=== PATIENT | male | born 1940 | race Caucasian/White ===

== ENCOUNTER 2017-02-08 14:38 | Inpatient (IN) | payer OTHER ==
[2017-02-08] MEDS ORDERED: ADENOSINE 6 MG/2 ML VIAL IVPUSH ONE ×2 (15:04→15:09)
[2017-02-08] MEDS ORDERED: SODIUM CHLORIDE 0.9% 500 ML INFUS.BAG IV ONE (15:05)
--- NOTE | 2017-02-08 15:07 | PDOC ---
History of Present Illness - General History Source: Patient Exam Limitations: No Limitations <Oswaldo El - Last Filed: 02/08/17 17:10> - History of Present Illness Initial Comments: 02/08/17 16:09 - General History Source: Patient Exam Limitations: No Limitations - History of Present Illness Initial Comments: 02/08/17 15:07 The patient is a 76 year old male brought via EMS, with a significant past medical history of HTN, who presents to the emergency department with tachycardia over the last few weeks. He visited his PMDs office, was given 4 baby aspirins and was sent to the ED for evaluation. He states that he has been having a rapid heart beat over the last few months, ranging from 140-150 bpm. He reports that he has been having heart irregularities over the past few months. He notes that he had a halter monitor and stress test during this time frame. He also reports dyspnea on exertion. He denies any lower extremity swelling. He notes that he recently had cold like symptoms that has since resolved. He also notes that he takes a baby aspirin daily. He states that he usually has 2-3 cups of coffee daily. The patient denies chest pain, headache and dizziness. Denies fever, chills, nausea, vomit, diarrhea and constipation. Denies dysuria, frequency, urgency and hematuria. Allergies: None Past surgical history: Social history: No alcohol, tobacco or drug use reported PMD - Dr. Dara Garcia <Oswaldo El - Last Filed: 02/08/17 15:28> <Kala Tovar - Last Filed: 02/09/17 09:19> - General Chief Complaint: Tachycardia Stated Complaint: ABNORMAL EKG Time Seen by Provider: 02/08/17 14:52 Past History <Oswaldo El - Last Filed: 02/08/17 17:10> - Past Medical History Anemia: No Asthma: No Cancer: Yes (SKIN CANCER) COPD: No - Psycho/Social/Smoking Cessation Hx Smoking History: Current some day smoker Have you smoked in the past 12 months: Yes Hx Alcohol Use: No Drug/Substance Use Hx: No Substance Use Type: None <Kala Tovar - Last Filed: 02/09/17 09:19> - Past Medical History Allergies/Adverse Reactions: Allergies Allergy/AdvReac Type Severity Reaction Status Date / Time No Known Allergies Allergy Verified 02/08/17 15:06 Home Medications: Ambulatory Orders Aspirin 81 mg PO DAILY #1 03/21/13 Cholecalciferol (Vitamin D3) [Vitamin D3 -] 400 unit PO DAILY 02/08/17 Metoprolol Tartrate 0 mg PO DAILY 02/08/17 Tamsulosin HCl [Flomax] 0.4 mg PO DAILY 02/08/17 Review of Systems - Review of Systems Able to Perform ROS?: Yes Comments:: 02/08/17 15:08 12 point review of systems is as per history of present illness and otherwise negative ROS All Other Systems: Reviewed and Negative <Oswaldo El - Last Filed: 02/08/17 17:10> *Physical Exam - Vital Signs Last Vital Signs Temp Pulse Resp BP Pulse Ox 97.7 F 139 H 18 141/90 100 02/08/17 14:38 02/08/17 14:38 02/08/17 14:38 02/08/17 14:38 02/08/17 14:38 - Physical Exam Comments: 02/08/17 15:08 GENERAL: The patient is awake, alert, and answering questions, in no respiratory distress HEAD: Normal with no signs of trauma. EYES: Normal HERNANDEZ ENT: Normal ENT Inspection NECK: Normal range of motion, supple without lymphadenopathy LUNGS: Lungs Clear, Normal Breath Sounds HEART: +Tachycardic and regular at 140 bpm, normal S1 and S2 without murmur, rub or gallop. ABDOMEN: Soft, nontender, normoactive bowel sounds. No guarding, no rebound. No masses appreciated. EXTREMITIES: +Trace pitting edema bilaterlly. Normal range of motion. No clubbing or cyanosis. No cords, erythema, or tenderness. NEUROLOGICAL: Cranial nerves II through XII grossly intact. Normal speech, normal gait. Grossly nonfocal neurologic exam PSYCH: Normal mood, normal affect. SKIN: Warm, Dry, normal turgor, no rashes or lesions noted. Last Vital Signs Temp Pulse Resp BP Pulse Ox 97.7 F 139 H 18 141/90 100 02/08/17 14:38 02/08/17 14:38 02/08/17 14:38 02/08/17 14:38 02/08/17 14:38 <Oswaldo El - Last Filed: 02/08/17 17:10> - Physical Exam Comments: 02/08/17 16:10 Temp Pulse Resp BP Pulse Ox 97.7 F 139 H 18 141/90 100 02/08/17 14:38 02/08/17 14:38 02/08/17 14:38 02/08/17 14:38 02/08/17 14:38 - Physical Exam Comments: 02/08/17 15:08 GENERAL: The patient is awake, alert, and answering questions, in no respiratory distress HEAD: Normal with no signs of trauma. EYES: Normal HERNANDEZ ENT: Normal ENT Inspection NECK: Normal range of motion, supple without lymphadenopathy LUNGS: Lungs Clear, Normal Breath Sounds HEART: +Tachycardic and regular at 140 bpm, normal S1 and S2 without murmur, rub or gallop. ABDOMEN: Soft, nontender, normoactive bowel sounds. No guarding, no rebound. No masses appreciated. EXTREMITIES: +Trace pitting edema bilaterlly. Normal range of motion. No clubbing or cyanosis. No cords, erythema, or tenderness. NEUROLOGICAL: Cranial nerves II through XII grossly intact. Normal speech, normal gait. Grossly nonfocal neurologic exam PSYCH: Normal mood, normal affect. SKIN: Warm, Dry, normal turgor, no rashes or lesions noted. Last Vital Signs Temp Pulse Resp BP Pulse Ox 97.7 F 139 H 18 141/90 100 02/08/17 14:38 02/08/17 14:38 02/08/17 14:38 02/08/17 14:38 02/08/17 14:38 <Oswaldo El - Last Filed: 02/08/17 15:28> 02/09/17 09:16 <Kala Tovar - Last Filed: 02/09/17 09:19> ED Treatment Course - LABORATORY CBC & Chemistry Diagram: 02/08/17 15:17 02/08/17 15:17 <Oswaldo El - Last Filed: 02/08/17 17:10> - LABORATORY CBC & Chemistry Diagram: 02/09/17 07:00 02/09/17 07:00 - RADIOLOGY Radiology Studies Ordered: Category Date Time Status CHEST X-RAY PORTABLE* [RAD] Stat Radiology 02/08/17 15:03 Ordered <MangoKala rao - Last Filed: 02/09/17 09:19> Medical Decision Making - Medical Decision Making 02/08/17 16:58 Dr. Garcia was consulted regarding the patient at 4:58pm [phone] Dr. Dustin Montiel was called regarding the patient at 5:03pm. Dr. Hill covering. [phone] Dr. Bassett was called regarding the patient at 5:09pm. Dr. Powers covering. [phone] <Oswaldo El - Last Filed: 02/08/17 17:10> - Medical Decision Making 02/08/17 15:05 76-year-old male who has had progressive palpitations, becoming constant, and associated with some dyspnea on exertion, but no chest pain He was found to be in a rapid tachycardia in his doctor's office, given 4 baby aspirin, and sent to the emergency department EKG Atrial flutter with 2 to one block vs SVT with retrograde P waves, with a heart rate of 140 (most likely atrial flutter with 2 to one block) Patient is alert and answering questions, and has no complaints of chest pain at this time Will start with adenosine 6 mg IV push 02/08/17 15:27 6mg of adenosine given Tachycardia was blocked down to reveal flutter waves, and then patient came back up to 140 will rate control with diltiazem 02/08/17 17:01 Patient slow down to 120 on diltiazem 5 mg drip (after 10 mg bolus) Feeling better, will increase diltiazem told 10 mg drip 02/08/17 17:13 Heart rate 115 on increase Cardizem drip Case discussed with Dr. Garcia-will admit Will give 1 mg/kg of Lovenox will consult Dr. Hill, and admit to ICU 02/08/17 17:19 Heart rate blocked down to 110 on the diltiazem drip, flutter waves seen 02/08/17 17:[address] [id number] see patient in consultation 02/08/17 17:[address] Powers-approves ICU bed Received another IV bolus of diltiazem, remains stable on Cardizem drip Laboratory Results - last 24 hr 02/08/17 02/08/17 02/08/17 15:17 15:17 15:17 WBC 5.3 RBC 5.13 Hgb 15.2 Hct 45.7 MCV 89.0 MCHC 33.3 RDW 15.7 Plt Count 209 MPV 7.4 L Neutrophils % Lymphocytes % Monocytes % Eosinophils % Basophils % INR PTT (Actin FS) Sodium 143 Potassium 4.5 Chloride 104 Carbon Dioxide 31 Anion Gap 8 BUN 19 H Creatinine 0.8 Creat Clearance w eGFR > 60 Random Glucose 97 Hemoglobin A1c % Lactic Acid Calcium 9.0 Magnesium 2.0 Total Bilirubin 0.6 AST 14 L ALT 21 Alkaline Phosphatase 74 Creatine Kinase 95 Troponin I < 0.02 B-Natriuretic Peptide 351.96 Total Protein 6.1 L Albumin 3.5 TSH 0.99 Free T4 02/08/17 02/08/17 02/09/17 15:17 15:17 00:17 WBC RBC Hgb Hct MCV MCHC RDW Plt Count MPV Neutrophils % Lymphocytes % Monocytes % Eosinophils % Basophils % INR 1.05 PTT (Actin FS) 33.6 Sodium Potassium Chloride Carbon Dioxide Anion Gap BUN Creatinine Creat Clearance w eGFR Random Glucose Hemoglobin A1c % Lactic Acid Calcium Magnesium Total Bilirubin AST ALT Alkaline Phosphatase Creatine Kinase 79 Troponin I < 0.02 B-Natriuretic Peptide Total Protein Albumin TSH Free T4 02/09/17 02/09/17 02/09/17 07:00 07:00 07:00 WBC 5.2 RBC 4.92 Hgb 14.6 Hct 44.3 MCV 90.2 MCHC 33.0 RDW 15.7 Plt Count 199 MPV 7.6 Neutrophils % 71.4 Lymphocytes % 16.0 Monocytes % 10.9 H Eosinophils % 1.3 Basophils % 0.4 INR PTT (Actin FS) Sodium 142 Potassium 4.0 Chloride 109 H Carbon Dioxide 24 D Anion Gap 9 BUN 17 Creatinine 0.8 Creat Clearance w eGFR Random Glucose 100 Hemoglobin A1c % Lactic Acid Calcium 8.5 Magnesium Total Bilirubin AST ALT Alkaline Phosphatase Creatine Kinase 74 Troponin I < 0.02 B-Natriuretic Peptide Total Protein Albumin TSH 1.66 D Free T4 1.08 02/09/17 02/09/17 07:00 07:00 WBC RBC Hgb Hct MCV MCHC RDW Plt Count MPV Neutrophils % Lymphocytes % Monocytes % Eosinophils % Basophils % INR PTT (Actin FS) Sodium Potassium Chloride Carbon Dioxide Anion Gap BUN Creatinine Creat Clearance w eGFR Random Glucose Hemoglobin A1c % 5.9 Lactic Acid 1.203 Calcium Magnesium Total Bilirubin AST ALT Alkaline Phosphatase Creatine Kinase Troponin I B-Natriuretic Peptide Total Protein Albumin TSH Free T4 <Kala Tovar - Last Filed: 02/09/17 09:19> *DC/Admit/Observation/Transfer - Attestations Scribe Attestion: 02/08/17 15:08 Documentation prepared by Oswaldo El, acting as pediatric medical assistant for Kala Tovar MD <Oswaldo El - Last Filed: 02/08/17 17:10> - Discharge Dispostion Admit: Yes <Kala Tovar - Last Filed: 02/09/17 09:19> Diagnosis at time of Disposition: Atrial flutter with rapid ventricular response, Tachycardia
[2017-02-08 15:08] VITALS: BMI 29.9
[2017-02-08] MEDS ORDERED: dilTIAZem HCL 50 MG/10 ML - 10 ML VIAL IVPUSH ONE ×3 (15:27→19:31)
[2017-02-08] MEDS ORDERED: dilTIAZem HCL 50 MG/10 ML - 10 ML VIAL ONE ×2 (15:30→19:34)
[2017-02-08 15:31] LABS: MCH 29.6 pg (25.7-33.7); MCHC 33.3 g/dl (32.0-35.9); MEAN PLT VOLUME 7.4 fl (7.5-11.1); PLATELET COUNT 209 K/MM3 (134-434); RDW 15.7 % (11.9-15.9); WHITE BLOOD COUNT 5.3 K/mm3 (4.0-10.0)
[2017-02-08] MEDS: DILTIAZEM INJECTION 125 MG in DEXTROSE 5%-WATER - 100 ML IVPB SCH (15:42)
[2017-02-08 15:54] LABS: INR 1.05 (0.82-1.09); PROTHROMBIN TIME (PATIENT) 11.6 SEC (9.98-11.88)
[2017-02-08 16:13] LABS: ALBUMIN 3.5 g/dl (3.4-5.0); ANION GAP 8 (8-16); CO2 31 mmol/L (21-32); CREATININE 0.8 mg/dL (0.7-1.3); GLUCOSE,RANDOM 97 mg/dL (74-106); SGOT/AST 14 U/L (15-37)
[2017-02-08 16:22] LABS: ALK PHOS 74 U/L (45-117); BILIRUBIN,TOTAL 0.6 mg/dL (0.2-1.0); SGPT/ALT 21 U/L (12-78); TOT PROT 6.1 g/dl (6.4-8.2)
[2017-02-08] MEDS ORDERED: ENOXAPARIN NA (PORCINE) 80 MG/0.8 ML DISP.SYRIN SQ SCH (17:15)
--- NOTE | 2017-02-08 17:24 | EKG ---
Test Reason : Blood Pressure : / mmHG Vent. Rate : 139 BPM Atrial Rate : 139 BPM P-R Int : 000 ms QRS Dur : 160 ms QT Int : 356 ms P-R-T Axes : 000 011 -54 degrees QTc Int : 541 ms ATRIAL FLUTTER WITH 2 TO 1 BLOCK AND RAPID VENTRICULAR RESPONSE NON-SPECIFIC INTRA-VENTRICULAR CONDUCTION BLOCK ABNORMAL ECG NO PREVIOUS ECGS AVAILABLE Confirmed by SHANITA GOLDBERG MD ([id number]) on 02/08/2017 5:24:28 PM Referred By: Confirmed By:SHANITA GOLDBERG MD
[2017-02-08] MEDS ORDERED: ENOXAPARIN NA (PORCINE) 80 MG/0.8 ML DISP.SYRIN SQ ONE (19:25)
[2017-02-08 21:05] LABS: TROPONIN I < 0.02 ng/ml (0.00-0.05)
[2017-02-08] MEDS ORDERED: ACETAMINOPHEN 650 MG SUPP.RECT PR PRN (21:07)
[2017-02-08] MEDS ORDERED: CHLORHEXIDINE GLUCONATE 4% CLEANSER FOR DECOLONIZATION TP SCH (22:00)
[2017-02-08] MEDS ORDERED: MUPIROCIN 2% TOPICAL OINTMENT FOR DECOLONIZATION NS SCH (22:00)
[2017-02-08] MEDS: METOPROLOL TARTRATE 50 MG TABLET (FP) PO SCH (22:48)
[2017-02-09 00:53] LABS: TROPONIN I < 0.02 ng/ml (0.00-0.05)
[2017-02-09] MEDS ORDERED: dilTIAZem HCL 125 MG/25 ML - 25 ML VIAL ONE ×2 (02:01→10:37)
[2017-02-09] MEDS ORDERED: dilTIAZem HCL 50 MG/10 ML - 10 ML VIAL ONE ×2 (02:01→10:37)
[2017-02-09] MEDS ORDERED: METOPROLOL TARTRATE 50 MG TABLET (FP) ONE (02:38)
[2017-02-09 07:33] LABS: BASOPHIL 0.4 % (0-2.0); EOSINOPHIL 1.3 % (0-4.5); MCH 29.8 pg (25.7-33.7); MEAN CELL VOLUME 90.2 fl (80-96); MEAN PLT VOLUME 7.6 fl (7.5-11.1); NEUTROPHILS 71.4 % (42.8-82.8); PLATELET COUNT 199 K/MM3 (134-434); RDW 15.7 % (11.9-15.9); WHITE BLOOD COUNT 5.2 K/mm3 (4.0-10.0)
[2017-02-09 08:15] LABS: CALCIUM 8.5 mg/dL (8.5-10.1); CREATININE 0.8 mg/dL (0.7-1.3)
[2017-02-09 08:16] LABS: FREE T4 1.08 ng/dl (0.76-1.16); TROPONIN I < 0.02 ng/ml (0.00-0.05)
[2017-02-09 08:23] LABS: THYROID STIMULATING HORMONE 1.66 uIU/ml (0.358-3.74)
[2017-02-09] MEDS: ASPIRIN 81 MG CHEWABLE TABLETS PO SCH (09:20)
[2017-02-09] MEDS: TAMSULOSIN HCL 0.4 MG CAP.ER.24H (FP) PO SCH (09:20)
[2017-02-09] MEDS: METOPROLOL TARTRATE 50 MG TABLET (FP) PO SCH ×2 (09:20→22:30)
[2017-02-09] MEDS: ENOXAPARIN NA (PORCINE) 80 MG/0.8 ML DISP.SYRIN SQ SCH ×2 (09:20→17:40)
[2017-02-09] MEDS ORDERED: METOPROLOL TARTRATE 50 MG TABLET (FP) PO ONE (09:35)
--- NOTE | 2017-02-09 10:19 | HP ---
Admitting History and Physical - Admission History of Present Illness: 76 year old male brought via EMS, with a significant past medical history of HTN, who presents to the emergency department with tachycardia over the last few weeks. He was seen in office office, was given 4 baby aspirins and was sent to the ED for evaluation. He states that he has been having a rapid heart beat over the last few weeks, ranging from 140-150 bpm. . He notes that he had a halter monitor and stress test during this time frame. He also reports dyspnea on exertion. He denies any lower extremity swelling. He notes that he recently had cold like symptoms that has since resolved. He also notes that he takes a baby aspirin daily. He states that he usually has 2-3 cups of coffee daily. pt c/o chest pain with minimal exertion c/o fatigue - Past Medical History Cardiovascular: Yes: HTN, Hyperlipdemia, Other (pvc) Pulmonary: No: COPD Gastrointestinal: No: Cancer, Crohn's Disease, Diverticulitis Renal/: No: Renal Failure, Renal Inusuff - Smoking History Smoking history: Current some day smoker Have you smoked in the past 12 months: Yes - Alcohol/Substance Use Hx Alcohol Use: No Home Medications - Allergies Allergies/Adverse Reactions: Allergies Allergy/AdvReac Type Severity Reaction Status Date / Time No Known Allergies Allergy Verified 02/08/17 15:06 - Home Medications Home Medications: Ambulatory Orders Aspirin 81 mg PO DAILY #1 03/21/13 Cholecalciferol (Vitamin D3) [Vitamin D3 -] 400 unit PO DAILY 02/08/17 Metoprolol Tartrate 0 mg PO DAILY 02/08/17 Tamsulosin HCl [Flomax] 0.4 mg PO DAILY 02/08/17 Review of Systems - Review of Systems Cardiovascular: reports: Chest Pain, Palpitations, Shortness of Breath Respiratory: reports: SOB on Exertion. denies: Cough Gastrointestinal: denies: Abdominal Pain Genitourinary: reports: No Symptoms Musculoskeletal: reports: No Symptoms Neurological: reports: Weakness. denies: Change in LOC, Change in Speech, Confusion Physical Examination Vital Signs: Vital Signs Temperature 97.7 F 02/08/17 14:38 Pulse Rate 116 H 02/09/17 09:15 Respiratory Rate 22 02/09/17 09:15 Blood Pressure 116/86 02/09/17 09:15 O2 Sat by Pulse Oximetry (%) 98 02/09/17 09:15 Neck: Yes: Supple Cardiovascular: Yes: Tachycardia, Pulse Irregular, S1, S2 Respiratory: Yes: Regular, CTA Bilaterally Gastrointestinal: Yes: Normal Bowel Sounds, Soft Edema: No Neurological: Yes: Alert, Oriented Labs: CBC, BMP 02/09/17 07:00 02/09/17 07:00 Imaging - Results Other: Report Reviewed, Image Reviewed Problem List - Problems (1) Atrial flutter with rapid ventricular response Assessment/Plan: CARDIZEM DRIP AC--LOVENOX CARDOP ECHO Code(s): I48.92 - UNSPECIFIED ATRIAL FLUTTER (2) HTN (hypertension) Assessment/Plan: CONTROLLED Code(s): I10 - ESSENTIAL (PRIMARY) HYPERTENSION (3) Chest pain Assessment/Plan: CE NEGATIVE CONSIDER NUCLEAR VS CATH--RECENT STRESS ECHO NL Code(s): R07.9 - CHEST PAIN, UNSPECIFIED
--- NOTE | 2017-02-09 13:27 | EKG ---
Test Reason : Blood Pressure : / mmHG Vent. Rate : 123 BPM Atrial Rate : 278 BPM P-R Int : 000 ms QRS Dur : 092 ms QT Int : 368 ms P-R-T Axes : 254 -19 -39 degrees QTc Int : 526 ms POOR DATA QUALITY, INTERPRETATION MAY BE ADVERSELY AFFECTED ATRIAL FLUTTER WITH VARIABLE A-V BLOCK ABNORMAL ECG WHEN COMPARED WITH ECG OF 08-FEB-2017 14:49, ATRIAL FLUTTER HAS REPLACED SINUS RHYTHM QRS DURATION HAS DECREASED ST NOW DEPRESSED IN INFERIOR LEADS NONSPECIFIC T WAVE ABNORMALITY NO LONGER EVIDENT IN LATERAL LEADS Confirmed by MICHELLE MARTINEZ MD ([id number]) on 02/09/2017 1:27:26 PM Referred By: Confirmed By:MICHELLE MARTINEZ MD
--- NOTE | 2017-02-09 13:30 | EKG ---
Test Reason : Blood Pressure : / mmHG Vent. Rate : 083 BPM Atrial Rate : 267 BPM P-R Int : 000 ms QRS Dur : 094 ms QT Int : 438 ms P-R-T Axes : 269 -31 -28 degrees QTc Int : 514 ms ATRIAL FLUTTER WITH VARIABLE A-V BLOCK LEFT AXIS DEVIATION JUNCTIONAL ST DEPRESSION, PROBABLY ABNORMAL PROLONGED QT ABNORMAL ECG WHEN COMPARED WITH ECG OF 08-FEB-2017 18:48, NO SIGNIFICANT CHANGE WAS FOUND Confirmed by MICHELLE MARTINEZ MD ([id number]) on 02/09/2017 1:29:31 PM Referred By: Pieter AL Confirmed By:MICHELLE MARTINEZ MD
--- NOTE | 2017-02-09 13:54 | PN ---
Progress Note, Physician Chief Complaint: Palpitations, SOB over past several weeks - Current Medication List Current Medications: Active Medications Acetaminophen (Tylenol Suppository -) 650 mg MA Q4H PRN PRN Reason: FEVER OR PAIN Aspirin (Asa -) 81 mg PO DAILY [facility] Last Admin: 02/09/17 09:20 Dose: 81 mg Chlorhexidine Gluconate (Hibiclens For Decolonization -) 1 applic TP HS [facility] Enoxaparin Sodium (Lovenox -) 80 mg SQ ONCE [facility] Last Admin: 02/08/17 19:29 Dose: 80 mg Enoxaparin Sodium (Lovenox -) 80 mg SQ BID@0600,1800 [facility] Last Admin: 02/09/17 09:20 Dose: 80 mg Diltiazem HCl 125 mg/ Dextrose 125 mls @ 5 mls/hr IVPB TITR MONALISA; 5 MG/HR PRN Reason: Protocol Last Titration: 02/08/17 19:47 Dose: 15 mg/hr Metoprolol Tartrate (Lopressor -) 50 mg PO BID [facility] Last Admin: 02/09/17 09:20 Dose: 50 mg Mupirocin (Bactroban Ointment (For Decolonization) -) 1 applic NS BID [facility] Stop: 02/13/17 21:59 Tamsulosin HCl (Flomax -) 0.4 mg PO DAILY [facility] Last Admin: 02/09/17 09:20 Dose: 0.4 mg - Objective Vital Signs: Vital Signs Temperature 97.7 F 02/08/17 14:38 Pulse Rate 116 H 02/09/17 09:15 Respiratory Rate 22 02/09/17 09:15 Blood Pressure 116/86 02/09/17 09:15 O2 Sat by Pulse Oximetry (%) 98 02/09/17 09:15 Labs: CBC, BMP 02/09/17 07:00 02/09/17 07:00 INR, PTT INR 1.05 (0.82-1.09) 02/08/17 15:17
--- NOTE | 2017-02-09 13:58 | CON.CARD ---
Consult Consult Specialty:: Cardiology Referred by:: Dr. Tovar Reason for Consultation:: Atrial flutter - History of Present Illness Chief Complaint: Palpitations, dyspnea over past several weeks History of Present Illness: 76 yo male with HTN, who presented to ED yesterday from his PMD's office for new onset rapid atrial flutter. Patient reported exertional dyspnea/fatigue and palpitations over the past several weeks and was found to be in new onset rapid atrial flutter at his PMD's office. He was started on diltiazem gtt and Lovenox in the ED. Currently better rate controlled, but not optimal. Currently without chest pain or dyspnea. Denies melena, hematochezia, or hematemesis. Patient was last seen by Dr. Girish Riley in 10/2016. - History Source History Provided By: Patient, Medical Record Limitations to Obtaining History: No Limitations - Past Medical History Cardio/Vascular: Yes: HTN, Hyperlipdemia, Other (H/O PVCs, atrial flutter) Pulmonary: No: COPD Gastrointestinal: No: Cancer, Crohn's Disease, Diverticulitis Renal/: No: Renal Failure, Renal Inusuff Heme/Onc: Yes: Cancer (History of skin cancer) - Past Surgical History Past Surgical History: Yes: Cataract Removal - Alcohol/Substance Use Hx Alcohol Use: No History of Substance Use: reports: None - Smoking History Smoking history: Current some day smoker Have you smoked in the past 12 months: Yes Home Medications - Allergies Allergies/Adverse Reactions: Allergies Allergy/AdvReac Type Severity Reaction Status Date / Time No Known Allergies Allergy Verified 02/08/17 15:06 - Home Medications Home Medications: Ambulatory Orders Aspirin 81 mg PO DAILY #1 03/21/13 Cholecalciferol (Vitamin D3) [Vitamin D3 -] 400 unit PO DAILY 02/08/17 Metoprolol Tartrate 0 mg PO DAILY 02/08/17 Tamsulosin HCl [Flomax] 0.4 mg PO DAILY 02/08/17 Family Disease History - Family Disease History Family Disease History: Heart Disease: Brother ( from heart failure at age 74) Review of Systems - Review of Systems Eyes: reports: No Symptoms HENT: reports: No Symptoms Neck: reports: No Symptoms Cardiovascular: reports: Palpitations, Shortness of Breath. denies: Chest Pain , Edema Respiratory: reports: SOB on Exertion Gastrointestinal: reports: No Symptoms Genitourinary: reports: No Symptoms Musculoskeletal: reports: No Symptoms Neurological: reports: No Symptoms Endocrine: reports: No Symptoms Hematology/Lymphatic: reports: No Symptoms Psychiatric: reports: No Symptoms - Risk Factors Known Risk Factors: Yes: Hypertension Vital Signs: Vital Signs Temperature 97.7 F 02/08/17 14:38 Pulse Rate 116 H 02/09/17 09:15 Respiratory Rate 22 02/09/17 09:15 Blood Pressure 116/86 02/09/17 09:15 O2 Sat by Pulse Oximetry (%) 98 02/09/17 09:15 Constitutional: Yes: No Distress, Obese Eyes: Yes: Conjunctiva Clear, EOM Intact HENT: Yes: Atraumatic, Normocephalic Respiratory: Yes: CTA Bilaterally Gastrointestinal: Yes: Normal Bowel Sounds, Soft. No: Tenderness Cardiovascular: Yes: Tachycardia, Pulse Irregular JVD: No Carotid Bruit: No Heart Sounds: Yes: S1, S2 Murmur: No: Systolic Murmur Edema: No Peripheral Pulses WNL: Yes Neurological: Yes: Alert, Oriented, Cran Nerves II-XII Intact ...Motor Strength: WNL Psychiatric: Yes: WNL - Other Data Labs, Other Data: CBC, BMP 02/09/17 07:00 02/09/17 07:00 INR, PTT INR 1.05 (0.82-1.09) 02/08/17 15:17 Troponin, BNP 02/09/17 02/09/17 00:17 07:00 Troponin I < 0.02 < 0.02 Troponin, BNP 02/09/17 02/09/17 00:17 07:00 Troponin I < 0.02 < 0.02 02/09/17 ECG: Atrial flutter with variable AV block Imaging - Results Chest X-ray: Report Reviewed (02/08/17 CXR: No acute pathology.), Image Reviewed Assessment/Plan 76 yo male with HTN, who presented with new onset rapid atrial flutter. Currently better controlled on diltiazem gtt and oral metoprolol. Currently on Lovenox for thromboembolic prophylaxis. TSH, free T4 normal Serial trops negative Reportedly negative stress echocardiogram in 10/2015. RECS: Patient may be admitted to telemetry floor as ICU bed is not needed at this time since patient is better rate controlled and currently stable. Will transition from Lovenox to oral anticoagulant (Eliquis) if no significant valvular disease per echocardiogram today. Will increase metoprolol tartrate to 100 mg po bid for rate control and wean diltiazem gtt as tolerated. HR < 120 acceptable for now. Patient is scheduled for EMMA guided cardioversion tomorrow at 11:30 AM (by me) if patient remains in atrial flutter by tomorrow. Please keep NPO after midnight for EMMA/cardioversion tomorrow. Please call with questions.
[2017-02-09] MEDS: DILTIAZEM INJECTION 125 MG in DEXTROSE 5%-WATER - 100 ML IVPB SCH (15:52)
--- NOTE | 2017-02-09 16:43 | PN ---
Progress Note (short form) - Note Progress Note: PULMONARY CONSULTATION DICTATED 02/09/17 IMP RAPID FLUTTER COPD STABLE CHEST PAIN HTN HLD PLAN RATE CONTROL PER CARDIOLOGY INHALED BRONCHODILATORS PRN RATE CONTROL PER CARDIOLOGY DR VERONICA Problem List - Problems (1) Atrial flutter with rapid ventricular response Code(s): I48.92 - UNSPECIFIED ATRIAL FLUTTER (2) Chest pain Code(s): R07.9 - CHEST PAIN, UNSPECIFIED (3) HTN (hypertension) Code(s): I10 - ESSENTIAL (PRIMARY) HYPERTENSION (4) Tachycardia Code(s): R00.0 - TACHYCARDIA, UNSPECIFIED
--- NOTE | 2017-02-09 23:18 | CONS ---
DATE OF CONSULTATION: 02/09/2017 PULMONARY CONSULTATION REFERRING PHYSICIAN: Dara Garcia M.D. HISTORY OF PRESENT ILLNESS: The patient is a 76-year-old white male with past medical history of hypertension, questionable COPD, hyperlipidemia, history of PVCs, atrial flutter, hyperlipidemia, admitted to [facility] with complaint of a few week history of palpitations. Patient went to his PMD's office today, was noted to be in rapid atrial flutter. He was sent to the emergency room for further therapy. Patient denied any complaint of chest pain, nausea, vomiting, diaphoreses. Denied any fevers or chills. In the ER, he was started on diltiazem drip and given Lovenox and transferred to telemetry unit for other monitoring. The patient has an occasional history of smoking. He is retired, his previous work as an accounts payable accountant. There is no history of recent travel, there is no history of DVT or PE in the past. He does complain of dyspnea on exertion while walking inclines, not on level ground. He has an occasional cough which is nonproductive. He denies any weight loss or night sweats. Of note is he underwent an echo which revealed evidence of moderate to severe tricuspid regurgitation with right ventricular systolic pressure . Patient states he is unsure whether or not he still has occasional daytime tiredness. He denies any history of witnessed apneic episodes. PAST MEDICAL HISTORY: Again includes history of irregular heartbeat, atrial flutter, hypertension, hyperlipidemia, questionable COPD, hyperlipidemia. REVIEW OF SYSTEMS: No orthopnea. No PND. No chest pain. No positive palpitations. No nausea. No vomiting. No diaphoreses. MEDICATION: Prior to admission include aspirin, vitamin D3, metoprolol, and Flomax. CURRENT MEDICATIONS: Include Flomax, Bactroban, Lovenox, Lopressor, Cardizem, and aspirin. PHYSICAL EXAMINATION: General: The patient is a well-developed, well-nourished male, awake, alert, in no acute distress. Vital signs: He is afebrile. Blood pressure 109/77, heart rate 94 and irregular, O2 saturation 95% on 2 L. HEENT: Head is normocephalic, atraumatic. Neck: Supple. Heart: Irregularly irregular. Normal S1, S2. Chest: Clear. Abdomen: Soft. Bowel sounds positive. Extremities: No cyanosis, edema. LABORATORY: WBC 5.2, hemoglobin 14.6, hematocrit 44.3, platelet count 199,000. BUN 17, creatinine 0.8. Chest x-ray reveals no infiltrates and no effusions. IMPRESSION: 1. Rapid atrial fibrillation and flutter. 2. Chronic obstructive pulmonary disease currently stable. 3. Hypertension. 4. Hyperlipidemia. PLAN: Continue rate control as per cardiology. Inhaled bronchodilators p.r.n. Nasal O2. PFTs as outpatient. FAITH VERONICA M.D. NÉSTOR/[id number] MTDD
[2017-02-10] MEDS: DILTIAZEM INJECTION 125 MG in DEXTROSE 5%-WATER - 100 ML IVPB SCH (01:58)
--- NOTE | 2017-02-10 08:20 | PN ---
Progress Note, Physician History of Present Illness: feels better no cp or sob - Current Medication List Current Medications: Active Medications Acetaminophen (Tylenol Suppository -) 650 mg IA Q4H PRN PRN Reason: FEVER OR PAIN Apixaban (Eliquis -) 5 mg PO BID [facility] Aspirin (Asa -) 81 mg PO DAILY [facility] Last Admin: 02/09/17 09:20 Dose: 81 mg Chlorhexidine Gluconate (Hibiclens For Decolonization -) 1 applic TP HS [facility] Diltiazem HCl 125 mg/ Dextrose 125 mls @ 5 mls/hr IVPB TITR MONALISA; 5 MG/HR PRN Reason: Protocol Last Admin: 02/10/17 01:58 Dose: 5 mls/hr Metoprolol Tartrate (Lopressor -) 100 mg PO BID [facility] Last Admin: 02/09/17 22:30 Dose: 100 mg Mupirocin (Bactroban Ointment (For Decolonization) -) 1 applic NS BID [facility] Stop: 02/13/17 21:59 Tamsulosin HCl (Flomax -) 0.4 mg PO DAILY [facility] Last Admin: 02/09/17 09:20 Dose: 0.4 mg - Objective Vital Signs: Vital Signs Temperature 98.2 F 02/10/17 06:00 Pulse Rate 81 02/10/17 06:00 Respiratory Rate 20 02/10/17 06:00 Blood Pressure 127/85 02/10/17 06:00 O2 Sat by Pulse Oximetry (%) 95 02/10/17 06:00 Cardiovascular: Yes: Pulse Irregular, S1, S2 Respiratory: Yes: Regular, CTA Bilaterally Gastrointestinal: Yes: Normal Bowel Sounds, Soft Labs: CBC, BMP 02/09/17 07:00 02/09/17 07:00 INR, PTT INR 1.05 (0.82-1.09) 02/08/17 15:17 Problem List - Problems (1) Atrial flutter with rapid ventricular response Assessment/Plan: RATE CONTROLLED AC--LOVENOX CARDIO NOTED --FOR CARDIOVERSION ECHO Code(s): I48.92 - UNSPECIFIED ATRIAL FLUTTER (2) HTN (hypertension) Assessment/Plan: CONTROLLED Code(s): I10 - ESSENTIAL (PRIMARY) HYPERTENSION (3) Chest pain Assessment/Plan: RESOLVED CE NEGATIVE CONSIDER NUCLEAR VS CATH--RECENT STRESS ECHO NL Code(s): R07.9 - CHEST PAIN, UNSPECIFIED
[2017-02-10] MEDS: METOPROLOL TARTRATE 50 MG TABLET (FP) PO SCH ×2 (09:38→21:44)
[2017-02-10] MEDS: APIXABAN 5 MG TABLET PO SCH ×2 (09:38→21:44)
[2017-02-10] MEDS: TAMSULOSIN HCL 0.4 MG CAP.ER.24H (FP) PO SCH (09:38)
[2017-02-10] MEDS: ASPIRIN 81 MG CHEWABLE TABLETS PO SCH (09:38)
--- NOTE | 2017-02-10 10:00 | PN ---
Progress Note, Physician History of Present Illness: Currently doing well. Rate controlled atrial flutter this morning. No complaints currently. - Current Medication List Current Medications: Active Medications Acetaminophen (Tylenol Suppository -) 650 mg [place] Q4H PRN PRN Reason: FEVER OR PAIN Apixaban (Eliquis -) 5 mg PO BID [facility] Last Admin: 02/10/17 09:38 Dose: 5 mg Aspirin (Asa -) 81 mg PO DAILY [facility] Last Admin: 02/10/17 09:38 Dose: 81 mg Chlorhexidine Gluconate (Hibiclens For Decolonization -) 1 applic TP HS [facility] Diltiazem HCl 125 mg/ Dextrose 125 mls @ 5 mls/hr IVPB TITR MONALISA; 5 MG/HR PRN Reason: Protocol Last Admin: 02/10/17 01:58 Dose: 5 mls/hr Metoprolol Tartrate (Lopressor -) 100 mg PO BID [facility] Last Admin: 02/10/17 09:38 Dose: 100 mg Mupirocin (Bactroban Ointment (For Decolonization) -) 1 applic NS BID [facility] Stop: 02/13/17 21:59 Tamsulosin HCl (Flomax -) 0.4 mg PO DAILY [facility] Last Admin: 02/10/17 09:38 Dose: 0.4 mg - Objective Vital Signs: Vital Signs Temperature 96.8 F L 02/10/17 08:00 Pulse Rate 86 02/10/17 08:00 Respiratory Rate 18 02/10/17 08:44 Blood Pressure 127/81 02/10/17 08:00 O2 Sat by Pulse Oximetry (%) 98 02/10/17 08:44 Constitutional: Yes: Well Nourished, No Distress Eyes: Yes: Conjunctiva Clear, EOM Intact HENT: Yes: Atraumatic, Normocephalic Cardiovascular: Yes: Pulse Irregular. No: JVD, Murmur Respiratory: Yes: CTA Bilaterally Gastrointestinal: Yes: Normal Bowel Sounds, Soft. No: Tenderness Edema: No Neurological: Yes: Alert, Oriented, Cran Nerves II-XII Intact Labs: CBC, BMP 02/09/17 07:00 02/09/17 07:00 INR, PTT INR 1.05 (0.82-1.09) 02/08/17 15:17 Assessment/Plan 76 yo male with HTN, who presented with new onset rapid atrial flutter. Currently rate controlled on diltiazem gtt and oral metoprolol. Currently on Lovenox for thromboembolic prophylaxis. TSH, free T4 normal Serial trops negative Reportedly negative stress echocardiogram in 10/2015. 02/09/17 Echocardiogram demonstrated normal LV size and systolic function, mod LAE +RUDDY, mild to mod MR, mod AR, mod to severe TR, normal RVSP, mild OH, mild aortic root dilatation RECS: Will discontinue diltiazem gtt. Continue metoprolol tartrate 100 mg po bid Will continue Eliquis 5 mg po bid. Patient scheduled for EMMA/cardioversion at 11:30 AM today. If successful cardioversion, patient will need to remain on Eliquis for 1 month post cardioversion. If no recurrence of aflutter/afib at that time, may discontinue Eliquis. Please call with questions.
[2017-02-10] MEDS ORDERED: PROPOFOL 20 ML ONE ×4 (10:50→11:30)
[2017-02-10] MEDS ORDERED: LIDOCAINE VISCOUS 2% ORAL/TOP 100 ML BOTTLE MM ONE (11:40)
--- NOTE | 2017-02-10 11:58 | PROC ---
Cardioversion Indication: Atrial flutter Risks and Benefits Explained: Yes Consent on Chart: Yes EMMA done prior to Cardioversion: Yes EMMA findings: No TESS thrombus Patient anticoagulated: Yes - Procedure Anesthesiologist present: Yes Medication given: Propofol was given intravenously by anesthesiology Joules delivered: Single shock 100 J (biphasic) w/ pads placed in anterior- posterior position Rhythm post cardioversion: Sinus bradycardia, HR 50s Transesophageal Echocardiogram - Pre-Procedure Indications: Evaluate for embolus (Pre-cardioversion EMMA) Risks and Benefits Explained: Yes Consent on Chart: Yes - Procedure Procedure Done: in Endoscopy Suite Medication given: Propofol was given intravenously by anesthesiology Findings: No TESS thrombus. Full details of EMMA to follow in separate report.
--- NOTE | 2017-02-10 16:07 | PN ---
Progress Note (short form) - Note Progress Note: S/P DCCV today by cardiology. No CP or SOB. Intake & Output 02/07/17 02/08/17 02/09/17 02/10/17 23:59 23:59 23:59 23:59 Intake Total 420 460 Output Total 250 400 Balance 170 60 Weight 180 lb 180 lb 0.013 oz 209 lb 4 oz Last Vital Signs Temp Pulse Resp BP Pulse Ox 97.4 F L 69 18 102/71 99 02/10/17 15:21 02/10/17 15:21 02/10/17 15:21 02/10/17 15:21 02/10/17 12:22 Active Medications Acetaminophen (Tylenol Suppository -) 650 mg [place] Q4H PRN PRN Reason: FEVER OR PAIN Apixaban (Eliquis -) 5 mg PO BID [facility] Last Admin: 02/10/17 09:38 Dose: 5 mg Chlorhexidine Gluconate (Hibiclens For Decolonization -) 1 applic TP HS [facility] Metoprolol Tartrate (Lopressor -) 100 mg PO BID [facility] Last Admin: 02/10/17 09:38 Dose: 100 mg Mupirocin (Bactroban Ointment (For Decolonization) -) 1 applic NS BID [facility] Stop: 02/13/17 21:59 Tamsulosin HCl (Flomax -) 0.4 mg PO DAILY [facility] Last Admin: 02/10/17 09:38 Dose: 0.4 mg Neck: Yes: Supple Cardiovascular: Yes: S1, S2 Respiratory: Yes: CTA Bilaterally Gastrointestinal: Yes: Normal Bowel Sounds, Soft Edema: No Neurological: Yes: Alert, Oriented Labs: Problem List - Problems (1) Atrial flutter with rapid ventricular response Code(s): I48.92 - UNSPECIFIED ATRIAL FLUTTER (2) Chest pain Code(s): R07.9 - CHEST PAIN, UNSPECIFIED (3) HTN (hypertension) Code(s): I10 - ESSENTIAL (PRIMARY) HYPERTENSION (4) Tachycardia Code(s): R00.0 - TACHYCARDIA, UNSPECIFIED IMP RAPID FLUTTER COPD STABLE CHEST PAIN HTN HLD PLAN RATE CONTROL PER CARDIOLOGY INHALED BRONCHODILATORS PRN O2 NEEDED DR SHARP
--- NOTE | 2017-02-10 16:12 | EKG ---
Test Reason : Blood Pressure : / mmHG Vent. Rate : 060 BPM Atrial Rate : 060 BPM P-R Int : 182 ms QRS Dur : 100 ms QT Int : 466 ms P-R-T Axes : 021 -16 006 degrees QTc Int : 466 ms NORMAL SINUS RHYTHM NORMAL ECG WHEN COMPARED WITH ECG OF 10-FEB-2017 08:53, SINUS RHYTHM HAS REPLACED ATRIAL FLUTTER ST NO LONGER ELEVATED IN INFERIOR LEADS Confirmed by CORTES BRAR, MER ([id number]) on 02/10/2017 4:12:09 PM Referred By: JOHN SAGE Confirmed By:MER KOLB MD
--- NOTE | 2017-02-10 16:17 | EKG ---
Test Reason : Blood Pressure : / mmHG Vent. Rate : 066 BPM Atrial Rate : 264 BPM P-R Int : 000 ms QRS Dur : 096 ms QT Int : 452 ms P-R-T Axes : 266 -24 -34 degrees QTc Int : 473 ms ATRIAL FLUTTER WITH 4:1 A-V CONDUCTION NONSPECIFIC ST ABNORMALITY ABNORMAL ECG WHEN COMPARED WITH ECG OF 09-FEB-2017 09:36, NO SIGNIFICANT CHANGE WAS FOUND Confirmed by CORTES BRAR, MER ([id number]) on 02/10/2017 4:17:27 PM Referred By: JOHN ANGELA Confirmed By:MER KOLB MD
--- NOTE | 2017-02-11 08:12 | DS ---
Physical Examination Vital Signs: Vital Signs Temperature 97.7 F 02/11/17 06:00 Pulse Rate 74 02/11/17 06:00 Respiratory Rate 18 02/11/17 06:00 Blood Pressure 118/81 02/11/17 06:00 O2 Sat by Pulse Oximetry (%) 95 02/11/17 06:00 Labs: CBC, BMP 02/09/17 07:00 02/09/17 07:00 Discharge Summary Reason For Visit: TACHYCARDIA/ATRIAL FIB W-VENTR RESPONSE Current Active Problems Atrial flutter with rapid ventricular response (Acute) Chest pain (Acute) HTN (hypertension) (Acute) Tachycardia (Acute) Hospital Course: 76 year old male brought via EMS, with a significant past medical history of HTN, who presents to the emergency department with tachycardia over the last few weeks. He was seen in office office, was given 4 baby aspirins and was sent to the ED for evaluation. He states that he has been having a rapid heart beat over the last few weeks, ranging from 140-150 bpm. . He notes that he had a halter monitor and stress test during this time frame. He also reports dyspnea on exertion. He denies any lower extremity swelling. He notes that he recently had cold like symptoms that has since resolved. He also notes that he takes a baby aspirin daily. He states that he usually has 2-3 cups of coffee daily. pt c/o chest pain with minimal exertion c/o fatigue - Past Medical History Cardiovascular: Yes: HTN, Hyperlipdemia, Other (pvc) Pulmonary: No: COPD Gastrointestinal: No: Cancer, Crohn's Disease, Diverticulitis Renal/: No: Renal Failure, Renal Inusuff Problems (1) Atrial flutter with rapid ventricular response Assessment/Plan: RATE CONTROLLED AC--LOVENOX CARDIO NOTED --FOR CARDIOVERSION ECHO NL LV CARDIO Patient underwent successful EMMA guided cardioversion today with single shock of 100 J (biphasic) with pads in anterior-posterior position. Diltiazem gtt was discontinued earlier. Continue metoprolol tartrate 100 mg po bid. If patient remains clinically stable and in sinus rhythm overnight, he may be discharged tomorrow with outpatient cardiology follow-up in 1 week. Patient is to remain on Eliquis 5 mg po bid for 1 month following his cardioversion today. If patient remains in sinus rhythm, may discontinue Eliquis at that time. Cardioversion Indication: Atrial flutter Risks and Benefits Explained: Yes Consent on Chart: Yes EMMA done prior to Cardioversion: Yes EMMA findings: No TESS thrombus Patient anticoagulated: Yes - Procedure Anesthesiologist present: Yes Medication given: Propofol was given intravenously by anesthesiology Joules delivered: Single shock 100 J (biphasic) w/ pads placed in anterior- posterior position Rhythm post cardioversion: Sinus bradycardia, HR 50s Transesophageal Echocardiogram - Pre-Procedure Indications: Evaluate for embolus (Pre-cardioversion EMMA) Risks and Benefits Explained: Yes Consent on Chart: Yes - Procedure Procedure Done: in [facility] Medication given: Propofol was given intravenously by anesthesiology Findings: No TESS thrombus. Full details of EMMA to follow in separate report. Code(s): I48.92 - UNSPECIFIED ATRIAL FLUTTER (2) HTN (hypertension) Assessment/Plan: CONTROLLED Code(s): I10 - ESSENTIAL (PRIMARY) HYPERTENSION (3) Chest pain Assessment/Plan: RESOLVED CE NEGATIVE CONSIDER NUCLEAR VS CATH--RECENT STRESS ECHO NL--CARDIO OUTPATIENT Code(s): R07.9 - CHEST PAIN, UNSPECIFIED Condition: Improved - Instructions Referrals: Dara Garcia MD [Staff Physician] - 1 Week Girish Riley MD [Staff Physician] - 1 Week Disposition: HOME - Home Medications Comprehensive Discharge Medication List: Ambulatory Orders Aspirin 81 mg PO DAILY #1 03/21/13 Cholecalciferol (Vitamin D3) [Vitamin D -] 400 unit PO DAILY 02/08/17 Tamsulosin HCl [Flomax] 0.4 mg PO DAILY 02/08/17 Apixaban [Eliquis -] 5 mg PO BID #60 tablet 02/11/17 Metoprolol Tartrate [Lopressor -] 100 mg PO BID #60 tablet 02/11/17
[2017-02-11 09:00] VITALS: BP 119/77; PULSE 65; TEMP 97.5
[2017-02-11] MEDS: METOPROLOL TARTRATE 50 MG TABLET (FP) PO SCH (09:11)
[2017-02-11] MEDS: APIXABAN 5 MG TABLET PO SCH (09:11)
[2017-02-11] MEDS: TAMSULOSIN HCL 0.4 MG CAP.ER.24H (FP) PO SCH (09:11)
== END 2017-02-11 10:40 | disposition home or self-care (01) | DRG 310 ==
LOC: JER 14:38 → JERBED 17:14 → J4W 02-09 15:55
PROVIDERS: ADMIT Family Medicine; ATTEND Family Medicine
PROC: 5A2204Z Restoration of Cardiac Rhythm, Single (ICD-10-PCS; 2017-02-10)
PROC: B246ZZ4 Ultrasonography of Right and Left Heart, Transesophageal (ICD-10-PCS; principal; 2017-02-10 11:30)
DX: I48.92 Unspecified atrial flutter (principal); R07.9 Chest pain, unspecified; I10 Essential (primary) hypertension; E78.5 Hyperlipidemia, unspecified; Z72.0 Tobacco use; R00.1 Bradycardia, unspecified; I48.91 Unspecified atrial fibrillation
CPT/HCPCS: 36415; 71010-TC; 80048; 80053; 82550; 83036; 83605; 83735; 83880; 84439; 84443; 84484; 85025; 85027; 85610; 85730; 93005; 93010; 93306-TC; 93312; 93325; 99285-25